=== PATIENT | female | born 1970 | race American Indian/Alaskan Native ===

== ENCOUNTER 2021-02-17 18:42 | Emergency (ER) | payer SELFPAY ==
[2021-02-17 19:23] VITALS: BP 148/71
[2021-02-17] MEDS ORDERED: HYDROcodone/ACETAMINOPHEN 5-325 MG TAB PO STA (19:53)
--- NOTE | 2021-02-17 20:17 | Emergency Department Report ---
ED Lower Extremity HPI - General Chief Complaint: Extremity Injury, Lower Stated Complaint: LEFT CALF PAIN Time Seen by Provider: 02/17/21 19:52 Source: patient Mode of arrival: Ambulatory Limitations: No Limitations - History of Present Illness Initial Comments: 50-year-old female slipped off the toilet while standing up the try to kill a bug and injuring her left leg on 05 February resulting in pain swelling and bruising which begin to resolve about 3 to 4 days ago then on February 16 she tried to run to away from a bug resulting in reactivating the injury to her calf and anterior left lower leg and reexacerbated the swelling associated with the injury. Now pain is dull and and throbbing to the left lower leg and she presented to have it even a evaluate for any significant trauma. Reports no some tingling sensation no history of any blood clots but does have some discomfort to her calf is MD Complaint: leg injury -: Gradual - Related Data Previous Rx's Medication Instructions Recorded Last Taken Type Ketorolac [Toradol] 10 mg PO Q6H PRN #20 tablet 02/17/21 Unknown Rx traMADoL [Ultram] 50 mg PO Q4HR PRN #20 tablet 02/17/21 Unknown Rx Allergies Allergy/AdvReac Type Severity Reaction Status Date / Time Sulfa (Sulfonamide Allergy Unknown Verified 02/17/21 19:19 Antibiotics) ED Review of Systems ROS: Stated complaint: LEFT CALF PAIN Other details as noted in HPI Comment: All other systems reviewed and negative ED Past Medical Hx - Past Medical History Previous Medical History?: Yes Hx Asthma: Yes - Surgical History Past Surgical History?: Yes Additional Surgical History: c section oophorectomy 2013 - Medications Home Medications: Home Medications Medication Instructions Recorded Confirmed Last Taken Type Ketorolac [Toradol] 10 mg PO Q6H PRN #20 tablet 02/17/21 Unknown Rx traMADoL [Ultram] 50 mg PO Q4HR PRN #20 tablet 02/17/21 Unknown Rx ED Physical Exam - General Limitations: No Limitations General appearance: alert, in no apparent distress - Head Head exam: Present: atraumatic, normocephalic - Eye Eye exam: Present: normal appearance - ENT ENT exam: Present: mucous membranes moist - Neck Neck exam: Present: normal inspection - Respiratory Respiratory exam: Present: normal lung sounds bilaterally. Absent: respiratory distress - Cardiovascular Cardiovascular Exam: Present: regular rate, normal rhythm. Absent: systolic murmur, diastolic murmur, rubs, gallop - GI/Abdominal GI/Abdominal exam: Present: soft, normal bowel sounds - Extremities Exam Extremities exam: Present: normal inspection - Back Exam Back exam: Present: normal inspection - Neurological Exam Neurological exam: Present: alert, oriented X3 - Psychiatric Psychiatric exam: Present: normal affect, normal mood - Skin Skin exam: Present: warm, dry, intact, normal color. Absent: rash ED Course Vital Signs 02/17/21 02/17/21 19:22 20:04 Temperature 98.4 F Pulse Rate 68 Respiratory 16 16 Rate Blood Pressure 148/71 [Left] O2 Sat by Pulse 99 Oximetry ED Lower Extremity MDM - Radiology Data Radiology results: report reviewed [facility] [address] [place] [address] Vascular Lab Report Signed Patient: FIDELIA MEDRANO MR# : [id number] : 1970 Acct:[id number] Age/Sex: 50 / F ADM Date: 02/17/21 Loc: ED Attending Dr: Ordering Physician: ERIN SALGADO Date of Service: 02/17/21 Procedure(s): VL venous duplex LE Accession Number(s): [id number] cc: ERIN SALGADO Left lower extremity Doppler venous ultrasound INDICATION: Calf pain after fall FINDINGS: The left common femoral vein, superficial femoral vein and popliteal vein have normal compressibility and phasic flow. There is a large intramuscular hemorrhage/hematoma measures 9.5 x 2.2 x 8.1 cm. IMPRESSION: 1. No evidence for DVT 2. Large intramuscular hematoma measures 9.5 x 2.2 x 8.1 cm Signer Name: Ariel Hawk MD Signed: 02/17/2021 9:15 PM Workstation Name: [id number] Transcribed By: CW Dictated By: MERE HAWK MD Electronically Authenticated By: MERE HAWK MD Signed Date/Time: 02/17/212114 DD/ 13 TD/TT: Print Cancel Critical care attestation.: If time is entered above; I have spent that time in minutes in the direct care of this critically ill patient, excluding procedure time. ED Disposition Clinical Impression: Gastrocnemius muscle tear Disposition: HOME / SELF CARE / HOMELESS Is pt being admited?: No Does the pt Need Aspirin: No Condition: Stable Prescriptions: Ketorolac [Toradol] 10 mg PO Q6H PRN #20 tablet PRN Reason: Pain traMADoL [Ultram] 50 mg PO Q4HR PRN #20 tablet PRN Reason: Pain Referrals: JJ LEGER MD [Staff Physician] -
--- NOTE | 2021-02-17 20:30 | XRay Report ---
XR tibia fibula 2V LT INDICATION / CLINICAL INFORMATION: fall willy swelling. COMPARISON: None available. FINDINGS: No acute fracture. Normal alignment. Joint spaces are preserved. No destructive osseous lesion or s uspicious periosteal reaction. Impression: 1.No acute fracture. Signer Name: Dyllan Cabrera MD Signed: 02/17/2021 8:25 PM Workstation Name: [id number]
--- NOTE | 2021-02-17 21:19 | Vascular Lab Report ---
Left lower extremity Doppler venous ultrasound INDICATION: Calf pain after fall FINDINGS: The left common femoral vein, superficial femoral vein and popliteal vein have normal compr essibility and phasic flow. There is a large intramuscular hemorrhage/hematoma measures 9.5 x 2.2 x 8 .1 cm. IMPRESSION: 1. No evidence for DVT 2. Large intramuscular hematoma measures 9.5 x 2.2 x 8.1 cm Signer Name: Ariel Hawk MD Signed: 02/17/2021 9:15 PM Workstation Name: [id number]
== END 2021-02-18 00:03 | disposition home or self-care (01) ==
LOC: ED 18:42
DX: S86.819A Strain of other muscle(s) and tendon(s) at lower leg level, unspecified leg, initial encounter (principal); X58.XXXA Exposure to other specified factors, initial encounter; Y93.89 Activity, other specified; Y92.89 Other specified places as the place of occurrence of the external cause; Y99.8 Other external cause status; Z88.2 Allergy status to sulfonamides
CPT/HCPCS: 99284

== ENCOUNTER 2021-07-19 01:03 | Emergency (ER) | payer OTHER ==
[2021-07-19] MEDS ORDERED: IPRATROPIUM/ALBUTEROL SULFATE 3 ML AMPUL.NEB IH ONE (01:49)
[2021-07-19 06:39] VITALS: BP 156/82
== END 2021-07-19 04:15 | disposition home or self-care (01) ==
LOC: ED 01:03
DX: J06.9 Acute upper respiratory infection, unspecified (principal); J45.21 Mild intermittent asthma with (acute) exacerbation; F17.200 Nicotine dependence, unspecified, uncomplicated
CPT/HCPCS: 94640; 94644; 99282